=== PATIENT | female | born 1980 | race African-American/Black ===

== ENCOUNTER 2016-12-12 02:07 | Outpatient (CLI) | payer BC ==
[~2016-12-12] VITALS: Ht 160 cm; Wt 80.0 kg
[~2016-12-12 02:07] MED LIST: BCP TD; CEFTIN500 MG PO; MOTRIN 600600 MG/TAB PO; NORCO 325 MG-51 TAB PO; OMNICEF 300MG300 MG PO; PERCOCET 325 MG1 TA2 PO; PRENATAL1 TA1 PO; TAMIFLU 75MG75 MG PO; TRANDATE 100MG100 MG PO; VICODIN 5/5001 UDTAB PO; ZOFRAN 4MG T4 MG/TAB PO; ZOFRAN4 M1 PO
[2016-12-12 02:30] VITALS: BP 130/85; PULSE 80; TEMP 98.2
[2016-12-12 02:34] VITALS: BP 130/85; PULSE 80; TEMP 98.2
[2016-12-12 03:30] VITALS: BP 136/70; PULSE 91
== END 2016-12-12 04:00 | disposition home or self-care (01) ==
LOC: LDRO 02:07
DX: O62.2 Other uterine inertia (principal); Z3A.38 38 weeks gestation of pregnancy

== ENCOUNTER 2016-12-20 15:23 | Outpatient (CLI) | payer BC ==
[~2016-12-20] VITALS: Ht 160 cm; Wt 79.1 kg
[2016-12-20 15:43] VITALS: BP 133/84; PULSE 83; TEMP 98.7
[2016-12-20] MEDS ORDERED: NATURAL IRON65 MG PO (15:48)
[2016-12-20] MEDS ORDERED: CALCIUM WITH D31 CTB PO (15:48)
[2016-12-20 16:00] VITALS: BP 126/83; PULSE 85; TEMP 98.7
[2016-12-20 16:51] VITALS: BP 127/88; PULSE 77
== END 2016-12-20 17:10 | disposition home or self-care (01) ==
LOC: LDRO 15:23
DX: O09.523 Supervision of elderly multigravida, third trimester (principal); Z3A.40 40 weeks gestation of pregnancy

== ENCOUNTER 2016-12-20 20:58 | Inpatient (IN) | payer BC ==
[2016-12-20] VITALS (10 sets, daily range): BP systolic 97–160; BP diastolic 55–86; PULSE 73–116; TEMP 97.9
[~2016-12-20] VITALS: Ht 157.5 cm; Wt 79.1 kg
[~2016-12-20 20:58] MED LIST changes: +CALCIUM WITH D31 CTB PO; +NATURAL IRON65 MG PO
[2016-12-20 21:25] LABS: BASO % 0.2 % (0.0-2.0); GRAN # 9.3 (1.4-6.5); GRAN % 80.2 % (42.2-75.2); LYMPH # 1.6 (1.2-3.4); LYMPH % 13.7 % (20.0-51.0); MEAN CELL VOLUME 80 fl (80.0-100.0); MEAN CORPUSCULAR HGB CONC 32 g/dl (33.0-37.0); MONO # 0.6 (0.1-0.6); MONO % 5.4 % (1.7-9.3); PLATELET COUNT 243 K/mm3 (130-400); RED BLOOD COUNT 3.78 M/mm3 (4.10-5.30); REDCELL DISTRIBUTION WIDTH-CV 15.1 % (11.5-14.5); WHITE BLOOD COUNT 11.6 K/mm3 (4.8-10.8)
[2016-12-20 21:27] LABS: HEMATOCRIT 30.4 % (37.0-47.0); HEMOGLOBIN 9.8 g/dl (12.5-16.0); MEAN CORPUSCULAR HEMOGLOBIN 26 pg (27.0-31.0)
[2016-12-21] VITALS (14 sets, daily range): BP systolic 109–1277; BP diastolic 62–86; PULSE 86–113; TEMP 97.5–98.4
[2016-12-22 07:49] VITALS: BP 104/60; PULSE 74; TEMP 98.2
[2016-12-22] MEDS ORDERED: IBU600 MG PO (12:54)
[2016-12-22] MEDS ORDERED: PERCOCET 325 MG1 TA2 PO (12:54)
[2016-12-22 16:38] VITALS: BP 114/68; PULSE 84; TEMP 98.1
[2016-12-22 20:30] VITALS: BP 131/79; PULSE 82; TEMP 98.2
[2016-12-23 08:53] VITALS: BP 120/86; PULSE 88; TEMP 97.7
== END 2016-12-23 12:15 | disposition home or self-care (01) | DRG 775 ==
LOC: LDRO 20:58 → OB 21:06 → LDR 21:06 → OB 12-21 02:50
PROVIDERS: Obstetrics & Gynecology
PROC: 10E0XZZ Delivery of Products of Conception, External Approach (ICD-10-PCS; principal; 2016-12-21)
PROC: 0KQM0ZZ Repair Perineum Muscle, Open Approach (ICD-10-PCS; 2016-12-21)
DX: O48.0 Post-term pregnancy (principal); O99.824 Streptococcus B carrier state complicating childbirth; O70.1 Second degree perineal laceration during delivery; O76 Abnormality in fetal heart rate and rhythm complicating labor and delivery; O69.81X0 Labor and delivery complicated by cord around neck, without compression, not applicable or unspecified; Z3A.40 40 weeks gestation of pregnancy; Z37.0 Single live birth
CPT/HCPCS: J2540; J2590; J2795; J7120

== ENCOUNTER 2017-11-07 13:30 | Outpatient (RCR) | payer BC ==
[~2017-11-07 13:30] MED LIST changes: +IBU600 MG PO
== END 2017-12-25 | disposition home or self-care (01) ==
LOC: WSPT
DX: M25.511 Pain in right shoulder (principal)

== ENCOUNTER 2019-07-05 10:23 | Emergency (ER) | payer BC ==
[~2019-07-05] VITALS: Ht 160 cm; Wt 57.7 kg
[2019-07-05 10:30] VITALS: TEMP 97.9
[2019-07-05 11:02] LABS: BASO % 0.4 % (0.0-2.0); EOS # 0.1 (0.0-0.7); GRAN # 5.4 (1.4-6.5); GRAN % 68.1 % (42.2-75.2); HEMATOCRIT 39.2 % (37.0-47.0); HEMOGLOBIN 12.8 g/dl (12.5-16.0); LYMPH % 24.8 % (20.0-51.0); MEAN CELL VOLUME 93 fl (80.0-100.0); MEAN CORPUSCULAR HEMOGLOBIN 30 pg (27.0-31.0); MEAN CORPUSCULAR HGB CONC 33 g/dl (33.0-37.0); MEAN PLATELET VOLUME 9.7 fl (7.4-10.4); MONO # 0.4 (0.1-0.6); MONO % 5.3 % (1.7-9.3); PLATELET COUNT 268 K/mm3 (130-400); RED BLOOD COUNT 4.23 M/mm3 (4.10-5.30); REDCELL DISTRIBUTION WIDTH-CV 12.8 % (11.5-14.5)
[2019-07-05 11:13] LABS: ALANINE AMINOTRANSFERASE 15 U/L (9-52); ALBUMIN 4.6 gm/dL (3.5-5.0); ALKALINE PHOSPHATASE 64 U/L (50-136); ANION GAP 9 mmol/L (7-16); AST,SGOT 20 U/L (15-37); BILIRUBIN,TOTAL 0.3 mg/dL (0.0-1.0); BLOOD UREA NITROGEN 16 mg/dL (7-17); CALCIUM 9.7 mg/dL (8.4-10.2); CARBON DIOXIDE 27 mmol/L (22-30); CHLORIDE 104 mmol/L (98-107); CREATININE, serum 0.78 (0.52-1.25); GLUCOSE 102 mg/dL (74-106); POTASSIUM 4.5 mmol/L (3.4-5.0); SODIUM 141 mmol/L (137-145); TOTAL PROTEIN 7.7 gm/dL (6.4-8.2)
[2019-07-05 11:14] LABS: PROTHROMBIN TIME 11.3 SECONDS (9.7-12.8)
[2019-07-05 11:28] LABS: TROPONIN-I < 0.012 ng/mL (0.000-0.035)
[2019-07-05 12:24] VITALS: BP 121/71; PULSE 80
== END 2019-07-05 12:26 | disposition home or self-care (01) ==
LOC: COL.ER 10:23
PROVIDERS: Emergency Medicine
DX: R20.2 Paresthesia of skin (principal); R51 Headache; Z98.51 Tubal ligation status
CPT/HCPCS: J1200; J2765; J7030

== ENCOUNTER → 2019-07-17 | Outpatient (CLI) | payer BC ==
[2019-07-17 11:50] LABS: BASO % 0.4 % (0.0-2.0); EOS # 0.1 (0.0-0.7); EOS % 1.2 % (0-4.0); GRAN # 6.3 (1.4-6.5); GRAN % 69.7 % (42.2-75.2); HEMATOCRIT 40.6 % (37.0-47.0); LYMPH # 1.7 (1.2-3.4); LYMPH % 18.7 % (20.0-51.0); MEAN CELL VOLUME 92 fl (80.0-100.0); MEAN CORPUSCULAR HEMOGLOBIN 30 pg (27.0-31.0); MEAN CORPUSCULAR HGB CONC 32 g/dl (33.0-37.0); MEAN PLATELET VOLUME 10.2 fl (7.4-10.4); MONO # 0.9 (0.1-0.6); MONO % 9.7 % (1.7-9.3); PLATELET COUNT 292 K/mm3 (130-400); REDCELL DISTRIBUTION WIDTH-CV 12.8 % (11.5-14.5)
[2019-07-17 12:02] LABS: C-REACTIVE PROTEIN < 0.5 mg/dL (0.0-0.9)
[2019-07-17 12:15] LABS: TROPONIN-I < 0.012 ng/mL (0.000-0.035)
[2019-07-17 12:45] LABS: ERYTHROCYTE SEDIMENTATION RATE 5 mm/hr (0-20)
== END ==
LOC: COL.LAB 11:21
PROVIDERS: Internal Medicine
DX: R07.9 Chest pain, unspecified (principal)

== ENCOUNTER → 2019-10-03 | Outpatient (CLI) | payer BC | LOC: COL.RAD 12:23 | DX: G44.039 Episodic paroxysmal hemicrania, not intractable (principal) | CPT/HCPCS: Q9967 ==

== ENCOUNTER → 2019-10-31 | Outpatient (CLI) | payer BC | LOC: COL.CARD 09:35 | DX: G44.039 Episodic paroxysmal hemicrania, not intractable (principal) ==

== ENCOUNTER → 2023-08-23 | Outpatient (CLI) | payer BC | LOC: MC.RAD 11:08 | DX: Z12.31 Encounter for screening mammogram for malignant neoplasm of breast (principal) ==